=== PATIENT | female | born 1960 | race African-American/Black ===

== ENCOUNTER 2018-12-18 15:07 | Inpatient (IN) | payer OTHER, MEDICAID ==
[~2018-12-18] VITALS: Ht 167.6 cm; Wt 127.0 kg
[~2018-12-18 15:07] MED LIST: BP MEDS; DIPH25CA83; HAL2; PSYCH MEDS
[2018-12-18] MEDS ORDERED: QUET25TA PO (15:11)
[2018-12-18] MEDS ORDERED: TOPA25 PO (15:11)
[2018-12-18] MEDS ORDERED: SODIUM CHLORIDE 0.9% 1,000 ML IV ONE (15:31)
[2018-12-18 18:36] LABS: CHLORIDE 101 mEq/L (98-107)
[2018-12-18 18:37] LABS: INR 1.1; PROTHROMBIN TIME 10.7 sec (9.1-11.1)
[2018-12-18 18:44] LABS: ETHANOL BLOOD < 10 mg/dL; HEMATOCRIT. 41.1 % (36.0-48.0); HEMOGLOBIN. 13.4 g/dL (12.0-16.0); MEAN CORPUSCULAR HEMOGLOBIN 32.1 pg (28.0-32.0); MEAN CORPUSCULAR VOLUME 98.3 fL (81.0-99.0); MEAN PLATELET VOLUME 8.8 fl (7.4-10.4); PLATELET 230 x1000/uL (130-400); RED BLOOD CELL COUNT 4.18 mill/uL (4.2-5.4); RED CELL DISTRIBUTION WIDTH 16.4 % (11.6-14.6)
[2018-12-18 18:51] LABS: CREATINE KINASE 92 IU/L (26-192)
[2018-12-18] MEDS ORDERED: PIPERACILLIN/TAZ 3.375G PREMIX 50 ML IV ONE (19:00)
[2018-12-18] MEDS ORDERED: VANCOMYCIN 1 G PREMIX 200 ML IV SCH (19:00)
[2018-12-18 19:23] LABS: CLARITY URINE CLOUDY (CLEAR); COLOR URINE DARK YELLOW (YELLOW); KETONES URINE TRACE (NEGATIVE); LEUKOCYTE ESTERASE URINE 1+ (NEGATIVE); NITRITE URINE POSITIVE (NEGATIVE); OCCULT BLOOD URINE NEGATIVE (NEGATIVE); PH URINE 6.5 (4.5-8.0); PROTEIN URINE NEGATIVE (NEGATIVE); SPECIFIC GRAVITY URINE 1.016 (1.005-1.030)
[2018-12-18 20:20] LABS: OPIATES URINE SCREEN NEGATIVE (NEGATIVE)
[2018-12-18 20:21] LABS: *AMPHETAMINES SCREEN URINE NEGATIVE (NEGATIVE); *BARBITURATES SCREEN URINE NEGATIVE (NEGATIVE); *BENZODIAZEPINES SCREEN URINE NEGATIVE (NEGATIVE); *COCAINE SCREEN URINE NEGATIVE (NEGATIVE); CANNABINOID URINE SCREEN NEGATIVE (NEGATIVE); METHADONE URINE SCREEN NEGATIVE (NEGATIVE); PHENCYCLIDINE URINE SCREEN NEGATIVE (NEGATIVE)
[2018-12-18 20:56] LABS: PLATELET ESTIMATE NORMAL
[2018-12-18] MEDS ORDERED: SODIUM CHLORIDE 0.9% 500 ML IV ONE (21:21)
[2018-12-19] VITALS (7 sets, daily range): BP systolic 117–158; BP diastolic 60–86
[2018-12-19] MEDS ORDERED: CLONIDINE 0.1MG TABLET PO PRN (07:00)
[2018-12-19] MEDS ORDERED: ACETAMINOPHEN 325MG TABLET PO PRN (07:00)
[2018-12-19] MEDS ORDERED: ONDANSETRON HCL 4MG/2ML INJ IV PRN (07:00)
[2018-12-19] MEDS ORDERED: ENOXAPARIN 40MG/0.4ML SYR SUBCUT SCH (09:00)
[2018-12-19] MEDS ORDERED: VANCOMYCIN 1250MG in DEXTROSE 5% WATER 250ML IV SCH (09:00)
[2018-12-19] MEDS: HYDROCODONE/ACETAMINOPHEN 5/325MG TABLET PO PRN ×3 (09:35→23:37)
[2018-12-19] MEDS: ENOXAPARIN 40MG/0.4ML SYR SUBCUT SCH ×2 (09:36→21:10)
[2018-12-19 09:42] LABS: HEMATOCRIT. 39.6 % (36.0-48.0); HEMOGLOBIN. 13.1 g/dL (12.0-16.0); MEAN CORPUSCULAR HEMOGLOBIN 32.8 pg (28.0-32.0); MEAN CORPUSCULAR VOLUME 98.6 fL (81.0-99.0); MEAN PLATELET VOLUME 8.6 fl (7.4-10.4); PLATELET 205 x1000/uL (130-400); RED BLOOD CELL COUNT 4.01 mill/uL (4.2-5.4); RED CELL DISTRIBUTION WIDTH 16.5 % (11.6-14.6)
[2018-12-19 09:51] LABS: CHLORIDE 106 mEq/L (98-107)
[2018-12-19] MEDS: SODIUM CHLORIDE 0.9% 1,000 ML IV SCH ×2 (10:00→21:11)
[2018-12-19] MEDS ORDERED: CYCL10TA7 MT (10:52)
[2018-12-19] MEDS ORDERED: CLON1TAB MT (10:52)
[2018-12-19] MEDS ORDERED: FURO20TA4 MT (10:52)
[2018-12-19] MEDS ORDERED: SIMV20TA6 MT (10:56)
[2018-12-19] MEDS ORDERED: OMEG-118 MT (10:56)
[2018-12-19] MEDS ORDERED: MELO-106 MT (10:56)
[2018-12-19] MEDS ORDERED: FOLI0.8C MT (10:56)
[2018-12-19] MEDS ORDERED: DILT180T11 MT (10:56)
[2018-12-19] MEDS ORDERED: CHOL50004 MT (10:56)
[2018-12-19] MEDS ORDERED: ASPI-986 MT (10:58)
[2018-12-19] MEDS: KETOROLAC 30MG/ML VIAL IV PRN (12:00)
[2018-12-19] MEDS: PIPERACILLIN/TAZ 3.375G PREMIX 50 ML IV SCH ×3 (12:19→21:10)
[2018-12-19 13:22] LABS: PLATELET ESTIMATE NORMAL
[2018-12-19] MEDS: VANCOMYCIN 1250MG in DEXTROSE 5% WATER 250ML IV SCH (23:38)
[2018-12-20] VITALS (7 sets, daily range): BP systolic 115–150; BP diastolic 56–88
[2018-12-20] MEDS: HYDROCODONE/ACETAMINOPHEN 5/325MG TABLET PO PRN ×3 (04:57→17:51)
[2018-12-20] MEDS: PIPERACILLIN/TAZ 3.375G PREMIX 50 ML IV SCH ×3 (05:59→23:25)
[2018-12-20] MEDS: ENOXAPARIN 40MG/0.4ML SYR SUBCUT SCH ×2 (09:15→21:00)
[2018-12-20] MEDS: SODIUM CHLORIDE 0.9% 1,000 ML IV SCH (10:40)
[2018-12-20] MEDS: KETOROLAC 30MG/ML VIAL IV PRN ×2 (14:38→23:15)
[2018-12-20] MEDS ORDERED: CLONAZEPAM 1MG TABLET PO PRN (16:38)
[2018-12-20] MEDS ORDERED: DEXTROSE 50% WATER 50ML SYRINGE IV PRN (16:45)
[2018-12-20] MEDS ORDERED: MEDICATION NOT ON FORMULARY EA (Diltiazem HCl (Diltiazem ER) 1 TAB) MT SCH (17:00)
[2018-12-20] MEDS: VANCOMYCIN 1250MG in DEXTROSE 5% WATER 250ML IV SCH (17:39)
[2018-12-20] MEDS: BLOOD SUGAR DIAGNOSTIC STRIP TEST SCH ×2 (17:43→22:00)
[2018-12-20] MEDS: INSULIN LISPRO 100 UNITS/ML SUBCUT SCH ×2 (17:44→21:00)
[2018-12-20] MEDS ORDERED: DILTIAZEM HCL 180MG CAPSULE CD 24HR PO NR (19:21)
[2018-12-20] MEDS ORDERED: MEDICATION NOT ON FORMULARY EA (Simvastatin 1 TAB) MT SCH (21:00)
[2018-12-20] MEDS ORDERED: MEDICATION NOT ON FORMULARY EA (Cyclobenzaprine Hcl 1 TAB) MT SCH (21:00)
[2018-12-20] MEDS: TOPIRAMATE 25MG TABLET PO SCH (23:17)
[2018-12-20] MEDS: ATORVASTATIN CALCIUM 10MG TABLET PO SCH (23:17)
[2018-12-20] MEDS: QUETIAPINE FUMARATE 25MG TABLET PO SCH (23:18)
[2018-12-21] MEDS: ENOXAPARIN 40MG/0.4ML SYR SUBCUT SCH ×3 (00:05→21:04)
[2018-12-21 03:51] VITALS: BP 99/57
[2018-12-21] MEDS: PIPERACILLIN/TAZ 3.375G PREMIX 50 ML IV SCH ×2 (07:21→15:12)
[2018-12-21] MEDS: BLOOD SUGAR DIAGNOSTIC STRIP TEST SCH ×4 (07:27→21:05)
[2018-12-21] MEDS: INSULIN LISPRO 100 UNITS/ML SUBCUT SCH ×4 (07:50→21:00)
[2018-12-21 08:00] VITALS: BP 116/68
[2018-12-21] MEDS: CHOLECALCIFEROL (D3) 1000 UNIT TABLET PO SCH (08:50)
[2018-12-21] MEDS: FOLIC ACID 1MG TABLET PO SCH (08:50)
[2018-12-21] MEDS: CYCLOBENZAPRINE 10MG TABLET PO SCH (08:50)
[2018-12-21] MEDS: ASPIRIN 325MG TABLET PO SCH (08:50)
[2018-12-21] MEDS: MELOXICAM 7.5MG TABLET PO SCH (08:51)
[2018-12-21] MEDS: FUROSEMIDE 20MG TABLET PO SCH (08:51)
[2018-12-21] MEDS: FISH OIL/OMEGA-3 FATTY ACIDS 1000MG CAPSULE PO SCH (08:51)
[2018-12-21] MEDS: DILTIAZEM HCL 180MG CAPSULE CD 24HR PO SCH (08:51)
[2018-12-21] MEDS ORDERED: MEDICATION NOT ON FORMULARY EA (Furosemide 1 TAB) MT SCH (09:00)
[2018-12-21] MEDS ORDERED: CHOLECALCIFEROL MT SCH (09:00)
[2018-12-21] MEDS ORDERED: FOLIC ACID MT SCH (09:00)
[2018-12-21] MEDS ORDERED: MEDICATION NOT ON FORMULARY EA (Meloxicam 1 TAB) MT SCH (09:00)
[2018-12-21] MEDS ORDERED: MEDICATION NOT ON FORMULARY EA (Aspirin 1 TAB) MT SCH (09:00)
[2018-12-21] MEDS: SODIUM CHLORIDE 0.9% 1,000 ML IV SCH (10:35)
[2018-12-21] MEDS: KETOROLAC 30MG/ML VIAL IV PRN ×2 (10:35→21:06)
[2018-12-21 12:00] VITALS: BP 111/68
[2018-12-21] MEDS: VANCOMYCIN 1250MG in DEXTROSE 5% WATER 250ML IV SCH (12:06)
[2018-12-21 16:00] VITALS: BP 118/66
[2018-12-21 20:00] VITALS: BP 127/81
[2018-12-21] MEDS: TOPIRAMATE 25MG TABLET PO SCH (21:04)
[2018-12-21] MEDS: QUETIAPINE FUMARATE 25MG TABLET PO SCH (21:04)
[2018-12-21] MEDS: ATORVASTATIN CALCIUM 10MG TABLET PO SCH (21:04)
[2018-12-22 00:05] VITALS: BP 109/59
[2018-12-22] MEDS: LEVOFLOXACIN 500MG TABLET PO SCH ×2 (00:48→14:08)
[2018-12-22 04:00] VITALS: BP 109/61
[2018-12-22] MEDS: BLOOD SUGAR DIAGNOSTIC STRIP TEST SCH ×4 (06:22→21:10)
[2018-12-22 08:00] VITALS: BP 118/70
[2018-12-22] MEDS: CHOLECALCIFEROL (D3) 1000 UNIT TABLET PO SCH (09:10)
[2018-12-22] MEDS: FUROSEMIDE 20MG TABLET PO SCH (09:10)
[2018-12-22] MEDS: ASPIRIN 325MG TABLET PO SCH (09:10)
[2018-12-22] MEDS: MELOXICAM 7.5MG TABLET PO SCH (09:11)
[2018-12-22] MEDS: CYCLOBENZAPRINE 10MG TABLET PO SCH (09:11)
[2018-12-22] MEDS: FISH OIL/OMEGA-3 FATTY ACIDS 1000MG CAPSULE PO SCH (09:11)
[2018-12-22] MEDS: FOLIC ACID 1MG TABLET PO SCH (09:12)
[2018-12-22] MEDS: DILTIAZEM HCL 180MG CAPSULE CD 24HR PO SCH (09:12)
[2018-12-22] MEDS: ENOXAPARIN 40MG/0.4ML SYR SUBCUT SCH ×2 (09:15→21:31)
[2018-12-22] MEDS: INSULIN LISPRO 100 UNITS/ML SUBCUT SCH ×4 (09:48→21:00)
[2018-12-22 12:00] VITALS: BP 114/72
[2018-12-22] MEDS ORDERED: VANCOMYCIN 1 G PREMIX 200 ML IV SCH (12:00)
[2018-12-22 16:00] VITALS: BP 120/76
[2018-12-22 20:48] VITALS: BP 113/71
[2018-12-22] MEDS: TOPIRAMATE 25MG TABLET PO SCH (21:31)
[2018-12-22] MEDS: ATORVASTATIN CALCIUM 10MG TABLET PO SCH (21:31)
[2018-12-22] MEDS: QUETIAPINE FUMARATE 25MG TABLET PO SCH (21:31)
[2018-12-23] VITALS (7 sets, daily range): BP systolic 98–116; BP diastolic 50–80
[2018-12-23] MEDS: BLOOD SUGAR DIAGNOSTIC STRIP TEST SCH ×4 (07:12→21:00)
[2018-12-23] MEDS: INSULIN LISPRO 100 UNITS/ML SUBCUT SCH ×4 (07:50→21:00)
[2018-12-23] MEDS: CYCLOBENZAPRINE 10MG TABLET PO SCH (09:15)
[2018-12-23] MEDS: ASPIRIN 325MG TABLET PO SCH (09:15)
[2018-12-23] MEDS: CHOLECALCIFEROL (D3) 1000 UNIT TABLET PO SCH (09:15)
[2018-12-23] MEDS: FUROSEMIDE 20MG TABLET PO SCH (09:15)
[2018-12-23] MEDS: FISH OIL/OMEGA-3 FATTY ACIDS 1000MG CAPSULE PO SCH (09:16)
[2018-12-23] MEDS: FOLIC ACID 1MG TABLET PO SCH (09:16)
[2018-12-23] MEDS: MELOXICAM 7.5MG TABLET PO SCH (09:16)
[2018-12-23] MEDS: DILTIAZEM HCL 180MG CAPSULE CD 24HR PO SCH (09:18)
[2018-12-23] MEDS: ENOXAPARIN 40MG/0.4ML SYR SUBCUT SCH ×2 (09:35→23:00)
[2018-12-23] MEDS: LEVOFLOXACIN 500MG TABLET PO SCH (13:45)
[2018-12-23] MEDS: ATORVASTATIN CALCIUM 10MG TABLET PO SCH (23:00)
[2018-12-23] MEDS: TOPIRAMATE 25MG TABLET PO SCH (23:01)
[2018-12-23] MEDS: QUETIAPINE FUMARATE 25MG TABLET PO SCH (23:01)
[2018-12-24] VITALS (7 sets, daily range): BP systolic 103–130; BP diastolic 60–86
[2018-12-24] MEDS: BLOOD SUGAR DIAGNOSTIC STRIP TEST SCH ×4 (07:31→21:00)
[2018-12-24] MEDS: INSULIN LISPRO 100 UNITS/ML SUBCUT SCH ×4 (07:50→21:00)
[2018-12-24] MEDS: CYCLOBENZAPRINE 10MG TABLET PO SCH (08:32)
[2018-12-24] MEDS: FOLIC ACID 1MG TABLET PO SCH (08:32)
[2018-12-24] MEDS: FISH OIL/OMEGA-3 FATTY ACIDS 1000MG CAPSULE PO SCH (08:32)
[2018-12-24] MEDS: FUROSEMIDE 20MG TABLET PO SCH (08:33)
[2018-12-24] MEDS: CHOLECALCIFEROL (D3) 1000 UNIT TABLET PO SCH (08:33)
[2018-12-24] MEDS: ASPIRIN 325MG TABLET PO SCH (08:33)
[2018-12-24] MEDS: MELOXICAM 7.5MG TABLET PO SCH (08:33)
[2018-12-24] MEDS: DILTIAZEM HCL 180MG CAPSULE CD 24HR PO SCH (08:34)
[2018-12-24] MEDS: ENOXAPARIN 40MG/0.4ML SYR SUBCUT SCH ×2 (08:35→22:48)
[2018-12-24] MEDS: LEVOFLOXACIN 500MG TABLET PO SCH (13:04)
[2018-12-24] MEDS: QUETIAPINE FUMARATE 25MG TABLET PO SCH (22:48)
[2018-12-24] MEDS: TOPIRAMATE 25MG TABLET PO SCH (22:48)
[2018-12-24] MEDS: ATORVASTATIN CALCIUM 10MG TABLET PO SCH (22:50)
== END 2018-12-24 23:50 | DRG 690 ==
LOC: ER 15:07 → ENRESERV 12-19 00:34 → UNDOADMIN 12-19 01:45 → 6WST 12-19 01:45 → UNDODISIN 12-24 23:50
PROVIDERS: ADMIT Internal Medicine; ATTEND Internal Medicine
DX: N39.0 Urinary tract infection, site not specified (principal); Z68.42 Body mass index [BMI] 45.0-49.9, adult; E44.1 Mild protein-calorie malnutrition; E86.0 Dehydration; F20.9 Schizophrenia, unspecified; I10 Essential (primary) hypertension; E11.9 Type 2 diabetes mellitus without complications; M16.10 Unilateral primary osteoarthritis, unspecified hip; E66.9 Obesity, unspecified; M47.816 Spondylosis without myelopathy or radiculopathy, lumbar region; M51.36 Other intervertebral disc degeneration, lumbar region; Z60.2 Problems related to living alone; W18.39XA Other fall on same level, initial encounter; Z91.81 History of falling; Y93.89 Activity, other specified; Y92.090 Kitchen in other non-institutional residence as the place of occurrence of the external cause; Y99.8 Other external cause status
CPT/HCPCS: 36415; 71045; 72141; 72148; 73521; 73560; 80048; 80185; 80202; 80305; 80307; 80329; 82140; 82550; 82962; 83605; 83880; 84145; 84443; 84484; 87077; 87186; 87493; 93005; 96361; 96365; 97161; 97530; 99285; A6261; C1893; G0482; J1650; J1815; J1885; J2543; J3370; J7030; J7040; J7060; A4315

== ENCOUNTER 2019-04-16 22:37 | Emergency (ER) | payer OTHER, MEDICAID ==
[~2019-04-16] VITALS: Ht 170.2 cm; Wt 136.0 kg
[~2019-04-16 22:37] MED LIST changes: +ASPI-986 MT; -BP MEDS; +CHOL50004 MT; +CLON1TAB MT; +CYCL10TA7 MT; +DILT180T11 MT; -DIPH25CA83; +FOLI0.8C MT; +FURO20TA4 MT; -HAL2; +MELO-106 MT; +OMEG-118 MT; -PSYCH MEDS; +QUET25TA PO; +SIMV20TA6 MT; +TOPA25 PO
[2019-04-16] MEDS ORDERED: OLANZAPINE 5MG TABLET ODT PO ONE (23:15)
[2019-04-16 23:33] LABS: CLARITY URINE CLOUDY (CLEAR); COLOR URINE YELLOW (YELLOW); KETONES URINE NEGATIVE (NEGATIVE); LEUKOCYTE ESTERASE URINE 2+ (NEGATIVE); NITRITE URINE NEGATIVE (NEGATIVE); OCCULT BLOOD URINE NEGATIVE (NEGATIVE); PROTEIN URINE NEGATIVE (NEGATIVE); SPECIFIC GRAVITY URINE 1.024 (1.005-1.030); UROBILINOGEN URINE 0.2 E.U./dL (0.2-1.0)
[2019-04-16 23:46] LABS: BASOPHILS % 1.2 % (0.0-2.0); EOSINOPHILS % 3.2 % (0.0-5.0); HEMATOCRIT. 34.6 % (36.0-48.0); HEMOGLOBIN. 11.5 g/dL (12.0-16.0); LYMPHOCYTES % 21.6 % (20.0-50.0); MEAN CORPUSCULAR HEMOGLOBIN 29.8 pg (28.0-32.0); PLATELET 264 x1000/uL (130-400); RED BLOOD CELL COUNT 3.85 mill/uL (4.2-5.4); RED CELL DISTRIBUTION WIDTH 14.2 % (11.6-14.6)
[2019-04-16 23:53] LABS: CHLORIDE 112 mEq/L (98-107)
[2019-04-16 23:55] LABS: *AMPHETAMINES SCREEN URINE NEGATIVE (NEGATIVE); *BARBITURATES SCREEN URINE NEGATIVE (NEGATIVE); *BENZODIAZEPINES SCREEN URINE NEGATIVE (NEGATIVE); *COCAINE SCREEN URINE NEGATIVE (NEGATIVE); METHADONE URINE SCREEN NEGATIVE (NEGATIVE); OPIATES URINE SCREEN NEGATIVE (NEGATIVE)
[2019-04-16 23:56] LABS: CANNABINOID URINE SCREEN NEGATIVE (NEGATIVE); PHENCYCLIDINE URINE SCREEN NEGATIVE (NEGATIVE)
[2019-04-16 23:58] LABS: ETHANOL BLOOD < 10 mg/dL
[2019-04-17] MEDS ORDERED: NITROFURANTOIN 100MG M/M CAPSULE PO ONE (00:45)
[2019-04-17] MEDS: NITROFURANTOIN 100MG M/M CAPSULE PO SCH ×2 (11:30→21:00)
[2019-04-18] MEDS: NITROFURANTOIN 100MG M/M CAPSULE PO SCH (09:16)
[2019-04-18 17:26] VITALS: BP 131/84
== END 2019-04-18 17:29 | disposition home or self-care (01) ==
LOC: ER 22:45
DX: R45.850 Homicidal ideations (principal); F31.9 Bipolar disorder, unspecified; F20.9 Schizophrenia, unspecified; Z79.82 Long term (current) use of aspirin; Z79.899 Other long term (current) drug therapy
CPT/HCPCS: 36415; 80305; 80307; 80320; 80329; 99284; G0480

== ENCOUNTER 2020-05-03 10:21 | Emergency (ER) | payer MEDICARE, MEDICAID ==
[~2020-05-03] VITALS: Ht 167.6 cm; Wt 168.7 kg
[~2020-05-03 10:21] MED LIST changes: +SIMV-43 MT; -SIMV20TA6 MT
[2020-05-03] MEDS ORDERED: SODIUM CHLORIDE 0.9% 1,000 ML IV ONE (10:54)
[2020-05-03] MEDS ORDERED: KETOROLAC 30MG/ML VIAL IV STA (10:54)
[2020-05-03] MEDS ORDERED: ONDANSETRON HCL 4MG/2ML INJ IV STA (10:54)
[2020-05-03] MEDS ORDERED: MECLIZINE 25MG TABLET PO ONE (11:00)
[2020-05-03 11:48] LABS: BASOPHILS % 0.8 % (0.0-2.0); EOSINOPHILS % 1.6 % (0.0-5.0); HEMOGLOBIN. 8.9 g/dL (12.0-16.0); LYMPHOCYTES % 13.7 % (20.0-50.0); MEAN CORPUSCULAR HEMOGLOBIN 24.3 pg (28.0-32.0); MEAN CORPUSCULAR VOLUME 76.1 fL (81.0-99.0); MEAN PLATELET VOLUME 8.4 fl (7.4-10.4); MONOCYTES % 5.9 % (2.0-8.0); PLATELET 310 x1000/uL (130-400); RED BLOOD CELL COUNT 3.68 mill/uL (4.2-5.4); RED CELL DISTRIBUTION WIDTH 17.4 % (11.6-14.6)
[2020-05-03 11:52] LABS: CHLORIDE 107 mEq/L (98-107)
[2020-05-03 11:56] LABS: ETHANOL BLOOD < 10 mg/dL
[2020-05-03 13:34] LABS: CLARITY URINE CLOUDY (CLEAR); COLOR URINE YELLOW (YELLOW); KETONES URINE NEGATIVE (NEGATIVE); LEUKOCYTE ESTERASE URINE 2+ (NEGATIVE); NITRITE URINE NEGATIVE (NEGATIVE); OCCULT BLOOD URINE NEGATIVE (NEGATIVE); PH URINE 5.5 (4.5-8.0); PROTEIN URINE NEGATIVE (NEGATIVE); SPECIFIC GRAVITY URINE 1.014 (1.005-1.030)
[2020-05-03 14:10] VITALS: BP 134/86
[2020-05-03 14:40] LABS: *AMPHETAMINES SCREEN URINE NEGATIVE (NEGATIVE); *BARBITURATES SCREEN URINE NEGATIVE (NEGATIVE); *BENZODIAZEPINES SCREEN URINE NEGATIVE (NEGATIVE)
[2020-05-03 14:41] LABS: *COCAINE SCREEN URINE NEGATIVE (NEGATIVE); CANNABINOID URINE SCREEN NEGATIVE (NEGATIVE); METHADONE URINE SCREEN NEGATIVE (NEGATIVE); OPIATES URINE SCREEN NEGATIVE (NEGATIVE); PHENCYCLIDINE URINE SCREEN NEGATIVE (NEGATIVE)
== END 2020-05-03 14:15 | disposition home or self-care (01) ==
LOC: ER 10:30
DX: R42 Dizziness and giddiness (principal); D64.9 Anemia, unspecified; E66.01 Morbid (severe) obesity due to excess calories; E11.9 Type 2 diabetes mellitus without complications; I10 Essential (primary) hypertension; F31.9 Bipolar disorder, unspecified; F20.9 Schizophrenia, unspecified; Z79.82 Long term (current) use of aspirin
CPT/HCPCS: 36415; 70450; 80053; 80305; 80320; 81003; 85025; 96361; 96374; 96375; 99284; J1885; J2405; J7030; J8597; G0480